=== PATIENT | male | born 1950 | race Two or more races ===

== ENCOUNTER 2021-02-20 11:38 | Emergency (ER) | payer MEDICARE, MEDICAID, SELFPAY ==
[2021-02-20] VITALS (7 sets, daily range): BP systolic 110–131; BP diastolic 68–82; PULSE 78–104; RESP 16–18; TEMP 36.9–37; O2SAT 95–99; BMI 18.2
--- NOTE | 2021-02-20 11:55 | XR_ITS ---
PROCEDURE: XR CHEST PORTABLE CLINICAL HISTORY: shortness of breath COMPARISON: CR ABDACU ABD ACUTE(MUL VIEWS) from 03/19/[address] [facility] [address] CHEST W/O CONTRAST from 04/04/2016 FINDINGS: The cardiomediastinal silhouette and pulmonary vascularity are within normal limits. COPD changes. No acute bony abnormalities. Small round metallic density overlies the mid chest on the left and over the left axillary region consistent with foreign bodies in the chest wall IMPRESSION: No acute findings. Dictated by: Maciel Albert MD 02/20/2021 14:19 Maciel Albert MD in [facility] 02/20/2021 14:19
--- NOTE | 2021-02-20 12:17 | HMH.EDGENADL ---
ED Disposition Clinical Impression: Anemia Disposition: Home, Self-Care Condition on Discharge: Good Referrals: Jasper Baltazar MD [Primary Care Provider] - - Critical Care Critical Care Time: No Attestation: On 02/20/21, the high probability of a clinically significant, sudden or life threatening deterioration of the following system(s) required my full and direct attention, intervention and personal management. The time I documented below is in addition to time spent performing reported procedures but includes the following listed in this critical care notation. Medical Decision Making - Irvin Inquiry Pt receiving controlled substance: No Vital Signs: 02/20/21 11:39 02/20/21 12:00 02/20/21 12:30 Temperature 98.5 F Temperature Source Oral Pulse Rate 102 H 89 Pulse Rate [Right] 104 H Respiratory Rate 16 Blood Pressure 112/80 110/68 Blood Pressure [Right Arm] 130/76 Blood Pressure Mean 90 82 Blood Pressure Mean [Right Arm] 94 Blood Pressure Source [Right Arm] Automatic Cuff Blood Pressure Position [Right Arm] Sitting 02 Sat by Pulse Oximetry 99 98 98 Oxygen Delivery Method Room Air 02/20/21 13:01 02/20/21 13:30 02/20/21 14:00 Temperature Temperature Source Pulse Rate 80 95 H 78 Pulse Rate [Right] Respiratory Rate Blood Pressure 117/82 116/79 131/80 Blood Pressure [Right Arm] Blood Pressure Mean 90 89 97 Blood Pressure Mean [Right Arm] Blood Pressure Source [Right Arm] Blood Pressure Position [Right Arm] 02 Sat by Pulse Oximetry 95 98 99 Oxygen Delivery Method - Lab Data Lab Results 02/20/21 11:57: WBC 11.7 H, RBC 4.07 L, Hgb 12.6 L, Hct 37.8 L, MCV 92.9, MCH 30.9, MCHC 33.2, RDW 13.5, Plt Count 49 L*, MPV 13.8 H, Neut % (Auto) 50.8, Lymph % (Auto) 20.8, [place] % (Auto) 27.7 H, Eos % (Auto) 0.2, Baso % (Auto) 0.5, Neut # (Auto) 5.9, Lymph # (Auto) 2.4, [place] # (Auto) 3.2 H, Eos # (Auto) 0.0, Baso # (Auto) 0.1, Total Counted 100, Neutrophils % (Manual) 72, Band Neutrophils % 2.0, Lymphocytes % (Manual) 10, Monocytes % (Manual) 16 H, Nucleated RBCs 1, Platelet Estimate Clumped, Giant Platelets 1+ 02/20/21 11:57: Sodium 129 L, Potassium 4.1, Chloride 92 L, Carbon Dioxide 28, Anion Gap 13.1, BUN 20, Creatinine 0.80, Estimated Creat Clear 54, Estimated GFR 96, Est GFR ( Amer) 116, Glucose 104 H, Calcium 9.1, Total Bilirubin 0.3, AST 21, ALT 15, Alkaline Phosphatase 78, NT-Pro-B Natriuret Pep 40.3, Total Protein 7.1, Albumin 4.0, Globulin 3.1, Albumin/Globulin Ratio 1.3 02/20/21 11:57: Blood Type O Positive, Antibody Screen Negative Result diagrams: 02/20/21 11:57 02/20/21 11:57 Orders (Tests/Meds): ED MEDICATIONS Discontinued Medications Generic Name Dose Route Start Last Admin Trade Name Freq PRN Reason Stop Dose Admin Sodium Chloride 1,000 mls @ 999 mls/hr 02/20/21 13:45 02/20/21 13:34 Sod Chlor 0.9% 1000ml Bag IV 02/20/21 14:45 999 mls/hr .Q1H1M KEENAN Administration Medical Decision Narrative: Patient presents with normal vital signs. Patient is overall well-appearing however cachectic. Given history, CBC and type and screen was performed however this demonstrated normal hemoglobin. Patient had no decline in status while in the emergency department. No high risk etiology of bleed such as cirrhosis known. Patient has a scheduled appointment in 1 week, suitable for outpatient follow-up. Hemoccult sent and pending at time of discharge. General Adult HPI - General Chief complaint: Weakness Stated complaint: internal bleeding, abd pain,unable to drink or eat Time Seen by Provider: 02/20/21 15:01 Mode of Arrival: Ambulatory Limitations: No Limitations Description of Symptoms (Recalled from ER Triage Doc. by RN): Pt is poor historian and gives multiple complaints that have been ongoing for months. Advises today he is here because he has had some bloody vomit and bleeding from his rectum that has been ongoing for a mon
[2021-02-20 12:25] LABS: Basophils # 0.1 K/mm3 (0-0.2); Basophils % 0.5 % (0.1-2.0); Eosinophils % 0.2 % (0.1-12.0); Hematocrit 37.8 % (42.0-52.0); Hemoglobin 12.6 g/dL (14.1-18.0); Lymphocytes # 2.4 K/mm3 (0.7-4.5); Lymphocytes % 20.8 % (10-50); Mean Corpuscular HGB Conc 33.2 g/dL (31.8-35.4); Mean Corpuscular Hemoglobin 30.9 pg (27.0-31.2); Mean Corpuscular Volume 92.9 fl (80-94); Mean Platelet Volume 13.8 fl (7.4-10.4); Monocytes # 3.2 K/mm3 (0.1-1.0); Monocytes % 27.7 % (1.7-9.3); Neutrophils # 5.9 K/mm3 (1.8-7.8); Neutrophils % 50.8 % (37.0-80.0); Red Blood Count 4.07 M/mm3 (4.60-6.20); Red Cell Distribution Width 13.5 % (11.5-17.5); White Blood Count 11.7 K/mm3 (4.8-10.8)
[2021-02-20 12:31] LABS: Chloride 92 mmol/L (98-107); Potassium 4.1 mmoL/L (3.5-5.1); Sodium 129 mmol/L (136-145)
[2021-02-20 12:34] LABS: Alanine Aminotransferase 15 U/L (12-78); Albumin/Globulin Ratio 1.3 (1.1-1.8); Alkaline Phosphatase 78 U/L (38-126); Anion Gap 13.1 mEq/L (5-15); Aspartate Amino Transferase 21 U/L (17-59); Bilirubin,Total 0.3 mg/dl (0.2-1.3); Blood Urea Nitrogen 20 mg/dl (9-20); Calcium 9.1 mg/dl (8.4-10.2); Carbon Dioxide 28 mmol/L (22.0-30.0); Creatinine Clearance Estimated 54 mL/min (50-200); Estimated Glomerular Filt Rate 96 ml/min (>60); GFR (African American) 116 ML/MIN (>60); Globulin 3.1 g/dL (1.3-3.2); Glucose 104 mg/dl (74-100); Total Protein,Serum 7.1 g/dl (6.3-8.2)
[2021-02-20 12:36] LABS: Platelet Count 49 K/mm3 (142-424)
--- NOTE | 2021-02-20 12:36 | PC.NURSE ---
PLT 49, repeated and verified with lab. Notified MD
[2021-02-20 12:38] LABS: MANUAL DIFFERENTIAL MANUAL DIFFERENTIAL (MANUAL DIFF)
[2021-02-20 12:43] LABS: NT Pro Brain Natriuretic Pep. 40.3 pg/mL (0-125)
[2021-02-20 12:59] LABS: Lymphocytes % 10 % (10-50); Monocytes % 16 % (2-9); Neutrophils % 72 % (42-76); Nucleated Red Blood Cells 1; Total Cells Counted 100
[2021-02-20 13:00] LABS: Giant Platelets 1+; Platelet Estimate Clumped
== END 2021-02-20 16:08 | disposition home or self-care (01) ==
PROVIDERS: Emergency Provider Internal Medicine Critical Care Medicine; PCP Internal Medicine Adolescent Medicine
DX: K92.2 Gastrointestinal hemorrhage, unspecified (principal); D64.9 Anemia, unspecified
CPT/HCPCS: 36415; 71045; 80053; 83880; 85007; 85025; 86850; 96365; 99282

== ENCOUNTER 2021-02-24 14:27 | Emergency (ER) | payer MEDICARE, MEDICAID, SELFPAY ==
[2021-02-24] VITALS (12 sets, daily range): BP systolic 98–112; BP diastolic 59–71; PULSE 78–109; RESP 16–20; TEMP 36.9–37.3; O2SAT 98–100; BMI 18.5; BMI 20.9
--- NOTE | 2021-02-24 15:03 | HMH.EDGENADL ---
ED Disposition Clinical Impression: Gastric perforation, Upper GI bleed, Blood loss anemia, Thrombocytopenia Disposition: Xfer Short-Term Hosp Condition on Discharge: Serious - Critical Care Critical Care Time: Yes Attestation: On 02/24/21, the high probability of a clinically significant, sudden or life threatening deterioration of the following system(s) required my full and direct attention, intervention and personal management. The time I documented below is in addition to time spent performing reported procedures but includes the following listed in this critical care notation. Total Critical Care Time: 60 Vital system(s) involved:: Circulatory Failure My critical care processes included: Assessment & monitoring of V/S, Initial and Re-exams, Data Review/Interpretation, Coordinating Care, Medication Orders and management, Documentation Medical Decision Making - Irvin Inquiry Pt receiving controlled substance: No Vital Signs: 02/24/21 14:27 02/24/21 15:00 02/24/21 15:45 Temperature 98.5 F Temperature Source Oral Pulse Rate 104 H Pulse Rate [Radial] 78 Respiratory Rate 16 20 18 Blood Pressure 100/65 L 99/59 L Blood Pressure [Right Arm] 105/69 L Blood Pressure Mean [Right Arm] 81 Blood Pressure Position [Right Arm] Sitting 02 Sat by Pulse Oximetry 98 98 Oxygen Delivery Method Room Air 02/24/21 16:45 Temperature Temperature Source Pulse Rate 105 H Pulse Rate [Radial] Respiratory Rate 18 Blood Pressure 103/61 L Blood Pressure [Right Arm] Blood Pressure Mean [Right Arm] Blood Pressure Position [Right Arm] 02 Sat by Pulse Oximetry 99 Oxygen Delivery Method - Lab Data Lab Results 02/24/21 15:05: WBC 12.3 H, RBC 1.96 L*, Hgb 5.8 L*, Hct 18.4 L*, MCV 94.2 H, MCH 29.8, MCHC 31.6 L, RDW 13.6, Plt Count 46 L*, MPV 11.7 H, Neut % (Auto) 73.2, Lymph % (Auto) 17.8, [place] % (Auto) 8.6, Eos % (Auto) 0.1, Baso % (Auto) 0.3, Neut # (Auto) 9.0 H, Lymph # (Auto) 2.2, [place] # (Auto) 1.1 H, Eos # (Auto) 0.0, Baso # (Auto) 0.0 02/24/21 15:05: Sodium 130 L, Potassium 3.4 L, Chloride 95 L, Carbon Dioxide 30, Anion Gap 8.4, BUN 34 H, Creatinine 0.60 L, Estimated Creat Clear 55, Estimated GFR 134, Est GFR ( Amer) 162, Glucose 107 H, Calcium 7.9 L, Total Bilirubin 0.1 L, AST 23, ALT 15, Alkaline Phosphatase 50, Troponin I 0.01, Total Protein 5.3 L D, Albumin 2.8 L, Globulin 2.5, Albumin/Globulin Ratio 1.1 02/24/21 15:15: Blood Type O Positive, Antibody Screen Negative, Crossmatch (AHG) See Detail 02/24/21 15:30: Stool Occult Blood Positive A Result diagrams: 02/24/21 15:05 02/24/21 15:05 Orders (Tests/Meds): ED MEDICATIONS Generic Name Dose Route Start Last Admin Trade Name Freq PRN Reason Stop Dose Admin Sodium Chloride 250 mls @ 25 mls/hr 02/24/21 16:00 Sod Chlor 0.9% 250ml Bag IV 02/25/21 15:59 .Q10H KEENAN Iopamidol 75 ml 02/24/21 16:41 02/24/21 16:42 Iopamidol-370 (76%);100ml Bottle IV 02/24/21 16:42 75 ml ONCE ONE Administration Pantoprazole Sodium 40 mg 02/24/21 21:00 02/24/21 17:11 Pantoprazole 40mg Vial IV 03/26/21 20:59 40 mg BID KEENAN Administration Sodium Chloride 10 ml 02/24/21 16:41 02/24/21 16:42 Sodium Chloride 0.9% 10ml Syr (Rad Only) IV 02/24/21 16:42 10 ml ONCE ONE Administration ORDERS Category Date Time Status PRBC [Red Blood Cells] Stat BBK 02/24/21 15:15 Results Type and Screen Stat BBK 02/24/21 15:15 Results Troponin I Q3H Lab 02/24/21 18:15 Ordered Troponin I Q3H Lab 02/24/21 21:15 Ordered - CT Data CT Scan: Abdomen, Pelvis Time Received: 17:[address] Reviewed: Yes: I discussed the CT results w/the radiologist, I have viewed the radiologist's interpretation Findings Narrative: Via phone: Perforated stomach. PROCEDURE INFORMATION: Exam: CT Abdomen And Pelvis With Contrast Exam date and time: 02/24/2021 4:02 PM Age: 70 years old Clinical indication: Patient HX: Generalized abdominal clay
[2021-02-24 15:35] LABS: Basophils % 0.3 % (0.1-2.0); Chloride 95 mmol/L (98-107); Eosinophils % 0.1 % (0.1-12.0); Lymphocytes # 2.2 K/mm3 (0.7-4.5); Lymphocytes % 17.8 % (10-50); Mean Corpuscular HGB Conc 31.6 g/dL (31.8-35.4); Mean Corpuscular Hemoglobin 29.8 pg (27.0-31.2); Mean Corpuscular Volume 94.2 fl (80-94); Mean Platelet Volume 11.7 fl (7.4-10.4); Monocytes # 1.1 K/mm3 (0.1-1.0); Monocytes % 8.6 % (1.7-9.3); Neutrophils % 73.2 % (37.0-80.0); Potassium 3.4 mmoL/L (3.5-5.1); Red Blood Count 1.96 M/mm3 (4.60-6.20); Red Cell Distribution Width 13.6 % (11.5-17.5); Sodium 130 mmol/L (136-145); White Blood Count 12.3 K/mm3 (4.8-10.8)
[2021-02-24 15:38] LABS: Alanine Aminotransferase 15 U/L (12-78); Albumin Level 2.8 g/dl (3.5-5.0); Albumin/Globulin Ratio 1.1 (1.1-1.8); Alkaline Phosphatase 50 U/L (38-126); Anion Gap 8.4 mEq/L (5-15); Aspartate Amino Transferase 23 U/L (17-59); Blood Urea Nitrogen 34 mg/dl (9-20); Carbon Dioxide 30 mmol/L (22.0-30.0); Creatinine Clearance Estimated 55 mL/min (50-200); Estimated Glomerular Filt Rate 134 ml/min (>60); GFR (African American) 162 ML/MIN (>60); Globulin 2.5 g/dL (1.3-3.2); Total Protein,Serum 5.3 g/dl (6.3-8.2)
[2021-02-24 15:39] LABS: Calcium 7.9 mg/dl (8.4-10.2); Glucose 107 mg/dl (74-100)
[2021-02-24 15:40] LABS: Bilirubin,Total 0.1 mg/dl (0.2-1.3)
[2021-02-24 15:49] LABS: Hematocrit 18.4 % (42.0-52.0); Platelet Count 46 K/mm3 (142-424)
--- NOTE | 2021-02-24 15:49 | PC.NURSE ---
critical labs called from lab- notified [facility]- 5.8 hct- 18.4 plt- 46
[2021-02-24 15:51] LABS: Hemoglobin 5.8 g/dL (14.1-18.0)
--- NOTE | 2021-02-24 16:02 | CT_ITS ---
PROCEDURE INFORMATION: Exam: CT Abdomen And Pelvis With Contrast Exam date and time: 02/24/2021 4:02 PM Age: 70 years old Clinical indication: Patient HX: Generalized abdominal pain; Additional info: Abdo pain TECHNIQUE: Imaging protocol: Computed tomography of the abdomen and pelvis with contrast. Radiation optimization: All CT scans at this facility use at least one of these dose optimization techniques: automated exposure control; mA and/or kV adjustment per patient size (includes targeted exams where dose is matched to clinical indication); or iterative reconstruction. Contrast material: ISOVUE; Contrast volume: 75 ml; Contrast route: IV; COMPARISON: CR ABDACU ABD ACUTE(MUL VIEWS) 03/19/2016 5:08 PM FINDINGS: Lungs: Probable mucous plugging/secretions in the left lower lobe. Mild emphysematous changes seen in the bases. Heart: Coronary artery calcifications. Liver: Several likely benign hepatic hypodensities are seen. Some of these can be seen on prior from 2017. Periportal edema is noted especially in the left lobe. Additionally, there is a focal ill-defined hypoattenuation in subsegment 3. See image 57 of series 3. It measures on the order 2 x 3 cm. Gallbladder and bile ducts: Normal. No calcified stones. No ductal dilation. Pancreas: Normal. No ductal dilation. Spleen: Normal. No splenomegaly. Adrenal glands: Normal. No mass. Kidneys and ureters: Normal. No hydronephrosis. Stomach and bowel: There appears to be a defect in the stomach along the lesser curvature. See coronal image 14 and axial image 61. The size of the defect is about 4 by 4 cm. Appendix: No evidence of appendicitis. Intraperitoneal space: Stranding and/or fluid surrounding the left hepatic lobe as well as the stomach. There appears to be a pocket of pneumoperitoneum on image 59 of series 3. Air adjacent to the falciform ligament is also suspected to represent pneumoperitoneum. Vasculature: Unremarkable. No abdominal aortic aneurysm. Lymph nodes: Unremarkable. No enlarged lymph nodes. Urinary bladder: Mild bladder distention. Reproductive: Unremarkable as visualized. Bones/joints: Age indeterminate compression deformities noted in the thoracolumbar spine. Soft tissues: Unremarkable. IMPRESSION: 1. Findings concerning for gastric perforation along the lesser curvature. 2. Ill-defined hypoattenuation in hepatic subsegment 3 could represent inflammation or tumor. Recommend dedicated liver mass protocol imaging once the patient's acute illness is resolved.
[2021-02-24 16:14] LABS: Occult Blood,Stool Positive (Negative)
[2021-02-24 16:14] LABS: Troponin I 0.01 ng/ml (0.00-0.034)
--- NOTE | 2021-02-24 17:04 | PC.NURSE ---
GALDINO speaking with LEONELA GREEN
--- NOTE | 2021-02-24 17:07 | PC.NURSE ---
surgery insurance verification specialist paged.
--- NOTE | 2021-02-24 17:07 | PC.NURSE ---
Dr Gomez returned call.
--- NOTE | 2021-02-24 17:22 | PC.NURSE ---
[facility]
--- NOTE | 2021-02-24 17:34 | PC.NURSE ---
[facility] returned call.
[2021-02-24 17:36] LABS: Coronavirus 19, PCR Not Detected (NotDetected); Influenza A, PCR Not Detected (NotDetected); Influenza B, PCR Not Detected (NotDetected)
--- NOTE | 2021-02-24 17:45 | PC.NURSE ---
PT UPDATED ON PLAN OF CARE
--- NOTE | 2021-02-24 18:10 | PC.NURSE ---
STAT UNIT PRBC'S TO INFUSE PRIOR TO TRANSFER. UNIT # [id number] TRANSFUSING WITH NURSE AT BEDSIDE. UNIT CHECKED WITH ADAM STORY.
--- NOTE | 2021-02-24 18:34 | PC.NURSE ---
REPORT CALLED TO FLOOR
--- NOTE | 2021-02-24 18:38 | PC.NURSE ---
REPORT CALLED TO [facility].
--- NOTE | 2021-03-21 13:51 | SW/DCPLANNER ---
Addendum entered by Rebecca Newton 03/22/21 10:00: [facility] is able to fill the order for Ensure/Boost. I will follow up with this patient at next Oncology appointment. Addendum entered by Rebecca Newton 03/21/21 14:20: Patient information/order has been faxed to [facility] for Ensure/Boost. Original Note: I spoke with this patient on 03/21/21 during his Oncology visit with Dr Nunez. Patient stated that he is currently living in [place] [facility] [facility] with a friend. Prior to moving in with his friend he stated that he was living in his car. Patient stated that his friend provides him with transportation to all of his appointments. Patient has applied for [employer] [place] and should hear back from Medicaid office next week. Patient has recently received a wheel chair from [facility]: Chanel alejandro/ Jean stated this was ordered by Dr Baltazar on 03/08/21. I have offered this patient home health services to assist with nursing and offer PT/OT at home: patient has denied services at this time. I did provide patient with my card including my name and number during visit. I will see this patient during Oncology apt next week to assist with any needs/new orders.
== END 2021-02-24 18:51 | disposition short-term general hospital (02) ==
LOC: ER 14:56 → 2ND 16:46
PROVIDERS: Emergency Provider Emergency Medicine; PCP Internal Medicine Adolescent Medicine
DX: K25.5 Chronic or unspecified gastric ulcer with perforation (principal); K92.2 Gastrointestinal hemorrhage, unspecified; D50.0 Iron deficiency anemia secondary to blood loss (chronic); D69.6 Thrombocytopenia, unspecified
CPT/HCPCS: 36430; 74177; 80053; 82272; 84484; 85025; 86850; 96365; 96375; 99284; C9803; G0328; P9016; Q9967; U0003; U0005

== ENCOUNTER → 2021-03-21 13:53 | Outpatient (CLI) | payer MEDICARE, MEDICAID, SELFPAY ==
[2021-03-21 15:03] LABS: Basophils % 0.5 % (0.1-2.0); Hematocrit 34.3 % (42.0-52.0); Hemoglobin 10.7 g/dL (14.1-18.0); Lymphocytes # 1.8 K/mm3 (0.7-4.5); Lymphocytes % 45.7 % (10-50); Mean Corpuscular HGB Conc 31.2 g/dL (31.8-35.4); Mean Corpuscular Hemoglobin 29.8 pg (27.0-31.2); Mean Corpuscular Volume 95.7 fl (80-94); Monocytes # 0.7 K/mm3 (0.1-1.0); Monocytes % 18.3 % (1.7-9.3); Neutrophils # 1.4 K/mm3 (1.8-7.8); Neutrophils % 34.5 % (37.0-80.0); Platelet Count 55 K/mm3 (142-424); Red Blood Count 3.59 M/mm3 (4.60-6.20)
[2021-03-21 15:33] LABS: Chloride 98 mmol/L (98-107); Potassium 4.4 mmoL/L (3.5-5.1); Sodium 130 mmol/L (136-145)
[2021-03-21 15:35] LABS: Alanine Aminotransferase 15 U/L (12-78); Aspartate Amino Transferase 24 U/L (17-59); Blood Urea Nitrogen 12 mg/dl (9-20); Estimated Glomerular Filt Rate 112 ml/min (>60); GFR (African American) 135 ML/MIN (>60)
[2021-03-21 15:36] LABS: Albumin/Globulin Ratio 1.5 (1.1-1.8); Alkaline Phosphatase 74 U/L (38-126); Anion Gap 8.4 mEq/L (5-15); Bilirubin,Total 0.2 mg/dl (0.2-1.3); Calcium 9.2 mg/dl (8.4-10.2); Carbon Dioxide 28 mmol/L (22.0-30.0); Globulin 2.6 g/dL (1.3-3.2); Glucose 105 mg/dl (74-100); Total Protein,Serum 6.6 g/dl (6.3-8.2)
== END ==
PROVIDERS: Visit Provider Internal Medicine Medical Oncology
DX: C16.9 Malignant neoplasm of stomach, unspecified (principal)
CPT/HCPCS: 36415; 80053; 85025

== ENCOUNTER → 2021-04-08 10:06 | Outpatient (CLI) | payer MEDICARE, MEDICAID, SELFPAY ==
--- NOTE | 2021-04-08 10:44 | CT_ITS ---
FINAL REPORT TECHNIQUE: After the administration of intravenous contrast, axial images were obtained through the abdomen and pelvis by computed tomography. This study was performed with technique to keep radiation doses as low as reasonably achievable, (ALARA). Individualized dose reduction techniques using automated exposure control or adjustment of the MA and/or KV according to the patient's size were employed. CLINICAL HISTORY: gastric cancer// patient said has been diagnosed with several types of cancer but he wasn't sure of them all// this is follow up on the cancer// 75ml of isovue given in right AC IV-- labs came from Dr with [id number]=[id number]-- COMPARISON: 02/24/2021 FINDINGS: Abdomen: Multiple low-attenuation hepatic masses are stable and favored to represent cysts. Gallbladder is present. There is persistent but partially improved wall thickening of the stomach with interval resolution of the previously seen defect along the lesser curvature of the stomach as well as improvement of the air and fluid superomedial to the stomach. Masses in the gastrohepatic ligament are again seen. Mass on the left measures 4.0 x 3.6, previously measured 4.1 x 3.0. Area on the right measures 4.5 x 3.2, previously measured 3.8 x 2.6. Findings are consistent with neoplastic involvement. Mass which involves the head of the pancreas, and extends superiorly, partially surrounding the proximal SMA is worse. Distal pancreatic duct is dilated up to 5 mm, new from prior exam. Multiple areas of upper abdominal adenopathy are worse. A portacaval lymph node measuring 32 mm previously measured 24 mm. The spleen is unremarkable. The adrenals are normal. The kidneys enhance appropriately. The aorta is normal in caliber. Pelvis: The appendix is not identified. The urinary bladder is unremarkable. IMPRESSION: Interval improvement of defect of the stomach wall along the lesser curvature as well as improvement of adjacent air and fluid. Worsening masses and adenopathy in the upper abdomen which may represent metastatic pancreatic cancer or metastatic other primary neoplasm. Worsening pancreatic ductal dilatation. Reviewed, Interpreted and Dictated by Heath Mcrae III, MD Transcribed by Jana Diaz Authenticated by Heath Mcrae III, MD on 04/08/2021 02:08:38 PM [facility]
--- NOTE | 2021-04-08 10:44 | CT_ITS ---
FINAL REPORT CLINICAL HISTORY: gastric cancer// patient said has been diagnosed with several types of cancer but he wasn't sure of them all// this is follow up on the cancer// 75ml of isovue given in right AC IV-- labs came from Dr with CGM=[id number]-- COMPARISON: 04/04/2016 FINDINGS: Axial CT images of the chest were obtained with contrast. Coronal reformatted images were also obtained. This study was performed with techniques to keep radiation doses as low as reasonably achievable, (ALARA). Individualized dose reduction techniques using automated exposure control or adjustment of mA and/or KV according to the patient''''s size were employed. There is precarinal adenopathy measuring 27 mm, previously measured 18 mm. This may be reactive or neoplastic. No axillary mass or adenopathy is identified. On lung window images, no pulmonary mass or dominant pulmonary nodule is identified. There is moderate emphysematous change and mild pulmonary scarring. No localized pulmonary inflammatory process is identified. IMPRESSION: Worsening precarinal adenopathy which may be reactive or neoplastic. Reviewed, Interpreted and Dictated by Heath Mcrae III, MD Transcribed by Jana Diaz Authenticated by Heath Mcrae III, MD on 04/08/2021 02:07:53 PM [facility]
--- NOTE | 2021-04-16 12:12 | SW/DCPLANNER ---
Addendum entered by Rebecca Newton 04/16/21 12:51: Laura alejandro/ [facility] has stated that she will follow up with this patient. Original Note: Oncology Nurse (Maddison Gonzalez) asked that I follow up with this patient regarding Hospice services. Dr Nunez discussed with this patient Hospice and patient stated that he would think about it. I did follow up with this patient today via phone and he did express an interest in Hospice and is agreeable for me to fax his information and have [facility] follow up with patient. Patient information has been faxed to [facility] and I will follow up once information is reviewed.
== END ==
PROVIDERS: PCP Family Medicine; Visit Provider Internal Medicine Medical Oncology
DX: C16.9 Malignant neoplasm of stomach, unspecified (principal)
CPT/HCPCS: 71260; 74177; Q9967